=== PATIENT | male | born 1990 ===

== ENCOUNTER 2024-02-21 16:59 | Emergency (ER) | payer SELFPAY ==
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
[2024-02-21 18:24] VITALS: BP 119/79; PULSE 74; RESP 18; O2SAT 100; BMI 18.2
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
[2024-02-21] MEDS: Acetaminophen 325 MG TABLET 975 MG PO (18:31)
[2024-02-21 21:05] VITALS: BP 119/79; PULSE 74; RESP 18; TEMP -17.7; TEMP 0; O2SAT 100
== END 2024-02-21 21:07 | disposition left against medical advice (07) ==
PROVIDERS: Emergency Provider Emergency Medicine
DX: S09.90XA Unspecified injury of head, initial encounter (principal); R68.84 Jaw pain; H60.91 Unspecified otitis externa, right ear; H92.01 Otalgia, right ear; R51.9 Headache, unspecified; M54.2 Cervicalgia; Y29.XXXA Contact with blunt object, undetermined intent, initial encounter; Y93.89 Activity, other specified; Y92.89 Other specified places as the place of occurrence of the external cause; Y99.8 Other external cause status
CPT/HCPCS: 70450; 70486; 72125; 99283; 99284